=== PATIENT | female | born 1965 | race Caucasian/White ===

== ENCOUNTER 2018-02-05 15:00 | Inpatient (IN) | payer OTHER ==
[2018-02-05 15:42] VITALS: BMI 20.2
[2018-02-05 16:26] LABS: Hemoglobin 12.5 g/dL (12.0-16.0); Mean Corpuscular Hemoglobin 30.5 pg (27.0-31.0); Mean Corpuscular Volume 92.4 fL (78.0-98.0); Mean Platelet Volume 6.8 fL (7.4-10.4); Platelet Count 505 thou/uL (130-400); RBC Distribution Width 11.7 % (11.5-14.5); White Blood Cell (WBC) Count 15.1 thou/uL (4.8-10.8)
[2018-02-05 16:43] LABS: Anion Gap 13 mmol/L (10-20); BUN (Urea Nitrogen) 8 mg/dL (9.8-20.1); Calc. Creatinine Clearance 0 mL/min (70-130); Calcium 8.4 mg/dL (7.8-10.44); Carbon Dioxide 28 mmol/L (22-29); Chloride 94 mmol/L (98-107); Estimated GFR-MDRD Greater than 90; Glucose 97 mg/dL (70-105); Sodium 132 mmol/L (136-145)
[2018-02-05 16:45] LABS: Potassium 2.6 mmol/L (3.5-5.1)
--- NOTE | 2018-02-06 02:11 | HP ---
She is scheduled for surgery on 02/09/2018. HISTORY OF PRESENT ILLNESS: Ms. Hubbard is a 52-year-old white female, menopausal since age 40, present ed to the emergency room on 01/25/2018, complaining of pelvic pain and nausea for few days. Workup e nsued at that visit including a CT of the abdomen and pelvis along with pelvic ultrasound. A left ov oscar 8 cm cyst with few septations were seen with Doppler flow present. There was no ascites or ome ntal caking or adenopathy, the pelvic or paraaortic chains. 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 No family history of breast or ovarian cancer. A lso, denies uterine or colon cancer. She has been using nonsteroidals and occasional Tylenol No. 3 f or pain. PAST MEDICAL HISTORY: Negative. PAST SURGICAL HISTORY: Appendectomy. She has never been . SOCIAL HISTORY: Nonsmoker. ALLERGIES: She has no known drug allergies. CURRENT MEDICATIONS: Zofran 4 mg q. 4-6 hours p.r.n. nausea, ibuprofen over the counter and Tylenol No. 3 one every 6 hours as needed for pain. PHYSICAL EXAMINATION: GENERAL: Well-developed, well-nourished white female in no acute distress. HEENT: Within normal limits. NECK: Showed no adenopathy, no masses and no thyromegaly. LUNGS: Chest is clear to auscultation. HEART: Regular rate and rhythm. S1, S2 heart sounds with no murmurs, rubs, or gallops. ABDOMEN: Soft. There is no rebound tenderness. No masses were palpable. PELVIC: External female genitalia had no lesions or masses. Vagina showed to be an atrophic mucosa consistent with menopausal state. Cervix had no discharge or lesions seen. The patient reports a no rmal Pap smear 2 years ago. Uterus was midline, smooth, nontender, nonenlarged. Adnexa showed a pal pable 8 cm mass on the left side, mildly tender with no rebound. Bladder and urethra had no lesions or masses seen. A CA-125 was obtained preoperatively showed it to be normal at 16.6 range. ASSESSMENT: This is a 52-year-old postmenopausal woman G0 with an 8 cm mainly cystic adnexal mass, m ost likely a serous cystadenoma. The patient with normal CA-125 levels and no other concerning findi ngs noted on CAT scan of abdomen and pelvis. The patient desired definitive surgical therapy and we will proceed with total abdominal hysterectomy along with bilateral salpingo-oophorectomy. Risks and benefits of the procedure are discussed in detail. Also discussed with her postoperative pain manag ement with the ON-Q pump for incisional pain control. She is set for surgery on 02/09/2018.
[2018-02-09] MEDS ORDERED: Gabapentin 300 MG CAP ONE (10:37)
[2018-02-09] MEDS ORDERED: Famotidine/PF 20 mg/2ml Vial ONE (10:38)
[2018-02-09] MEDS ORDERED: CeleCOXIB 100 MG CAP ONE (10:38)
[2018-02-09] MEDS ORDERED: CEFAZOLIN/Water 2 GM/20 ML SYRINGE ONE (10:38)
[2018-02-09] MEDS ORDERED: Ropivacaine HCl/PF 750 ML in Premix Bag 1 BAG NERVE BLCK SCH (10:45)
[2018-02-09] MEDS ORDERED: Potassium Chloride 20 MEQ TAB PO SCH ×2 (11:00→16:00)
[2018-02-09] MEDS ORDERED: Potassium Chloride 20 MEQ in Premix Bag 1 BAG IVPB SCH (11:00)
[2018-02-09 11:41] LABS: Potassium 2.6 mmol/L (3.5-5.1)
[2018-02-09] MEDS ORDERED: Potassium Chloride 40 MEQ in Sodium Chloride 0.9% 500 ML IVPB SCH (12:15)
[2018-02-09] MEDS ORDERED: Zolpidem Tartrate 5 MG TAB PO PRN (12:35)
[2018-02-09] MEDS ORDERED: Sodium Chloride 0.65% Nasal 44 ML BOT EA NARE PRN (14:44)
[2018-02-09] MEDS ORDERED: Artificial Tears 18 DROP/0.9 ML EA EYE PRN (14:44)
[2018-02-09] MEDS ORDERED: Diabetic Tussin 200 MG/10 ML UDCUP PO PRN (14:44)
[2018-02-09] MEDS ORDERED: Mag-Al 1200 mg/1200 mg/30 ML UDCUP PO PRN (14:44)
[2018-02-09] MEDS ORDERED: Milk Of Magnesia 30 ML UDCUP PO PRN (14:44)
[2018-02-09] MEDS ORDERED: Ondansetron ODT 4 MG TAB PO PRN (14:44)
[2018-02-09] MEDS ORDERED: Loratadine 10 MG TAB PO PRN (14:44)
[2018-02-09] MEDS ORDERED: Eucerin (Mineral Oil/Petrolatum,White) 30 gm Jar TOP PRN (14:44)
[2018-02-09] MEDS ORDERED: hydrALAZINE 20 MG/ML VIAL SLOW IVP PRN (14:44)
[2018-02-09] MEDS: Ondansetron HCl/PF 4 MG/2 ML Vial IVP PRN ×2 (15:04→20:39)
--- NOTE | 2018-02-09 15:19 | CON ---
DATE OF CONSULTATION: 02/09/2018 PRIMARY CARE PHYSICIAN: Dr. Sebastien Joyce. REASON FOR CONSULTATION: Medical management. HISTORY OF PRESENT ILLNESS: A 52-year-old female who was electively brought to the hospital for surg kierra for hysterectomy. The patient was planned for surgery today, but surgery was postponed because o f low potassium. We are consulted for medical comanagement. This patient has 2-3 weeks history of lower abdominal pain. The patient has nausea, vomiting, and in termittent diarrhea. The patient reports that she has 2-3 vomiting daily basis and nausea almost per sistent. She has very poor appetite and she lost several pounds over last 2-3 weeks. She also has i ntermittently diarrhea. After eating, she has to go for bowel movement. She denies any blood, pus. She denies any sick exposures. She denies any unusual food ingestion. The patient is feeling very fatigued and tired and dehydrated. Patient was keep drinking Gatorade and electrolyte solution, but patient was not eating solid food significantly. Because after eating solid food, she was feeling fu ll in stomach. She denies any UTI symptoms. She denies any chest pain, palpitation. She denies any syncope, dizziness. She is feeling weakness. Patient reports that she came to emergency room on 01/25/2018 for these symptoms and at that time, sh e had CT of the abdomen and pelvis along with a pelvic ultrasound and the patient was found with a le ft ovarian cyst 8 cm as well as few septation where seen with the Doppler study. As per my discussio n with Dr. Shields, there was no ascites or lymphadenopathy. The patient was electively admitted for surgery today. PAST MEDICAL HISTORY: Reviewed and negative. PAST SURGICAL HISTORY: Appendicectomy. SOCIAL HISTORY: The patient denies any smoking. No alcohol or other illicit drug abuse. FAMILY HISTORY: No strong family history of premature coronary artery disease, stroke or cancer. ALLERGIES: No known drug allergy. CURRENT HOME MEDICATIONS: Tylenol No. 3 one tablet q.6 hourly p.r.n., ibuprofen 600 mg p.o. p.r.n., Zofran 4 mg p.o. p.r.n. PAST PSYCHIATRIC HISTORY: Reviewed and negative. REVIEW OF SYSTEMS: The following complete review of systems was negative, unless otherwise mentioned in the HPI or below: Constitutional: Weight loss or gain, ability to conduct usual activities. Sk in: Rash, itching. Eyes: Double vision, pain. ENT/Mouth: Nose bleeding, neck stiffness, pain, te nderness. Cardiovascular: Palpitations, dyspnea on exertion, orthopnea. Respiratory: Shortness of breath, wheezing, cough, hemoptysis, fever or night sweats. Gastrointestinal: Poor appetite, abdomi nal pain, heartburn, nausea, vomiting, constipation, or diarrhea. Genitourinary: Urgency, frequency , dysuria, nocturia. Musculoskeletal: Pain, swelling. Neurologic/Psychiatric: Anxiety, depression . Allergy/Immunologic: Skin rash, bleeding tendency. Please see my HPI for pertinent positive and negative. All other review of systems reviewed and nega tive except as mentioned in the HPI. ADDITIONAL INFORMATION: At day stay patient was given potassium chloride 20 mEq IV, but the patient' s IV site was hurting and that is why that drip was discontinued and patient was started on NS with K Cl. PHYSICAL EXAMINATION: VITAL SIGNS: at day stay, blood pressure 130/70, pulse 88, respiratory rate 18, temperature 97.6, sa turation 95% on room air. GENERAL: Patient is currently alert, awake, no obvious acute distress. HEAD: Normocephalic, atraumatic. EYES: Pupils round, reactive to light. Extraocular muscle intact. ENT: Oropharynx within normal limits. Moist mucous membranes. No oral lesion, no pharyngeal erythe ma, no exudate. NECK: Supple, no JVD, no thyromegaly, no carotid bruit, no jugular venous distention. LUNGS: Clear to auscultation without any rhonchi or rales. CARDIAC: S1, S2 regular without any murmur, no gallop, no rub. ABDOMEN: Soft, bowel sounds present, nontender, nondistended. No organomegaly, no mass, no suprapub ic tenderness. BACK: Unremarkable, no CVA tenderness. EXTREMITIES: Upper extremity: Passive movements of all joints are normal. Lower extremities: No e jessica. Good distal pulsation. SKIN: No skin rash. HEMATOLOGICAL: No lymphadenopathy. PSYCHIATRIC: Normal affect. NEUROLOGIC: Nonfocal examination. SIGNIFICANT LABORATORY DATA: Currently, patient has potassium 2.6. Recent CBC showed WBC 15.1, hemo globin 12.5, platelet 505. Sodium 132, potassium 2.6, chloride 94, carbon dioxide 28, anion gap 13, BUN 8, creatinine 0.55, glucose 97, calcium 8.4. ASSESSMENT AND PLAN/IMPRESSION: 1. Hypokalemia. We will replace potassium chloride with IV fluid with 40 mEq in a 500 mL NS at a sl ow rate. We will recheck potassium again later on today at 5:00 p.m. We will check phosphorus and m agnesium, and replace accordingly. 2. Diarrhea. The patient has diarrhea for almost 2-3 weeks. At this point, we will send stool for infectious etiology and we will treat symptomatically with Imodium p.r.n. basis. 3. Ovarian cyst. We will defer management to primary team. 4. Deep venous thrombosis prophylaxis. Sequential compression device boots. Patient is planned for surgery tomorrow and that is why we will hold on Lovenox therapy. 5. Gastrointestinal prophylaxis. Pepcid 20 mg p.o. b.i.d. 6. Nausea and vomiting. We will treat symptomatically with Zofran on p.r.n. basis. 7. Code status: The patient is FULL CODE. Disposition plan based on clinical course. In short, we will repeat labs later on today and we will try to replace all electrolytes within normal limit. Eventually after surgery, this patient may need a colonoscopic evaluation to rule out any other etiology for her diarrhea.
[2018-02-09] MEDS: Sodium Chloride 0.9% 1,000 ML IV SCH (15:25)
[2018-02-09 16:14] LABS: Anion Gap 13 mmol/L (10-20); BUN (Urea Nitrogen) 7 mg/dL (9.8-20.1); Calc. Creatinine Clearance 95 mL/min (70-130); Calcium 8.5 mg/dL (7.8-10.44); Carbon Dioxide 24 mmol/L (22-29); Chloride 99 mmol/L (98-107); Estimated GFR-MDRD Greater than 90; Glucose 106 mg/dL (70-105); Magnesium 1.7 mg/dL (1.6-2.6); Phosphorus 3.1 mg/dL (2.3-4.7); Potassium 3.2 mmol/L (3.5-5.1); Sodium 133 mmol/L (136-145)
[2018-02-09] MEDS ORDERED: Sodium Chloride 0.9% 0 ML ONE (16:56)
[2018-02-09] MEDS: HYDROcodone/Acetaminophen 5/325 mg Tablet PO PRN (20:47)
[2018-02-09] MEDS: Famotidine 20 MG TAB PO SCH (20:47)
[2018-02-09 21:04] LABS: Band 49 % (5-11); Hemoglobin 12.6 g/dL (12.0-16.0); Lymphocytes 6 % (21-51); MDiff Complete? YES; Mean Corpuscular HGB CONC 33.8 g/dL (32.0-36.0); Mean Corpuscular Hemoglobin 31.1 pg (27.0-31.0); Mean Corpuscular Volume 91.9 fL (78.0-98.0); Mean Platelet Volume 6.3 fL (7.4-10.4); Metamyelocyte 1 % (0-0); Monocytes 5 % (0-10); Myelocyte 1 % (0-0); Neutrophil 38 % (42-75); PLT Morphology Comment Appears Increased; Platelet Count 582 thou/uL (130-400); RBC Distribution Width 11.6 % (11.5-14.5); RBC Morphology Normal; Red Blood Cell (RBC) Count 4.07 mill/uL (4.20-5.40); Reflex for Review?? YES; White Blood Cell (WBC) Count 13.5 thou/uL (4.8-10.8)
[2018-02-09 21:12] LABS: ALT (SGPT) 12 U/L (8-55); AST (SGOT) 16 U/L (5-34); Albumin 3.2 g/dL (3.5-5.0); Alkaline Phosphatase 102 U/L (40-150); Anion Gap 13 mmol/L (10-20); BUN (Urea Nitrogen) 8 mg/dL (9.8-20.1); Bilirubin, Total 0.3 mg/dL (0.2-1.2); Calc. Creatinine Clearance 100 mL/min (70-130); Calcium 8.7 mg/dL (7.8-10.44); Carbon Dioxide 25 mmol/L (22-29); Chloride 100 mmol/L (98-107); Estimated GFR-MDRD Greater than 90; Globulin 2.9 g/dL (2.4-3.5); Glucose 106 mg/dL (70-105); Potassium 3.2 mmol/L (3.5-5.1); Protein, Total 6.1 g/dL (6.0-8.3); Sodium 135 mmol/L (136-145)
[2018-02-10] MEDS: Sodium Chloride 0.9% 1,000 ML IV SCH ×3 (00:43→22:56)
[2018-02-10] MEDS: Loperamide HCl 2 MG CAP PO PRN (04:45)
[2018-02-10] MEDS: Famotidine 20 MG TAB PO SCH ×2 (07:43→20:43)
[2018-02-10 07:54] LABS: Anion Gap 9 mmol/L (10-20); BUN (Urea Nitrogen) 5 mg/dL (9.8-20.1); Calc. Creatinine Clearance 120 mL/min (70-130); Calcium 8.2 mg/dL (7.8-10.44); Carbon Dioxide 24 mmol/L (22-29); Chloride 105 mmol/L (98-107); Estimated GFR-MDRD Greater than 90; Glucose 99 mg/dL (70-105); Sodium 134 mmol/L (136-145)
--- NOTE | 2018-02-10 08:22 | PDOC.EVN ---
Event Note - Event Note Event Note: Ready for surgery this morning. Having some crampy abdominal pain O:AFVSS..K+ is 4.0... abdomen no rebound. soft. A/P: hypokalemia corrected. For ANA CRISTINA/BSO today..
[2018-02-10] MEDS ORDERED: Ondansetron HCl/PF 4 MG/2 ML Vial ONE ×2 (09:26→13:45)
[2018-02-10] MEDS ORDERED: Morphine 4 MG/ML VIAL ONE (09:26)
--- NOTE | 2018-02-10 09:39 | PDOC.PN ---
- Subjective Encounter Start Date: 02/10/18 Encounter Start Time: 08:40 Patient seen and examined. No new complaints. No overnight events - Objective Resuscitation Status: Resuscitation Status FULL:Full Resuscitation MAR Reviewed: Yes Vital Signs & Weight: Vital Signs (12 hours) Temp Pulse Resp BP Pulse Ox 02/10/18 08:30 98.3 F 72 18 117/69 92 L 02/10/18 04:45 98.9 F 73 18 110/54 L 02/10/18 00:45 98.7 F 69 16 108/53 L 96 Weight Weight 120 lb I&O: 02/09/18 02/10/18 02/11/18 06:59 06:59 06:59 Intake Total 2590 0 Balance 2590 0 Result Diagrams: 02/09/18 20:47 02/10/18 07:24 Phys Exam - Physical Examination Constitutional: NAD HEENT: PERRLA, moist MMs, sclera anicteric Neck: no JVD, supple Respiratory: no wheezing, no rales, no rhonchi Cardiovascular: RRR, no significant murmur, no rub Gastrointestinal: soft, non-tender, no distention, positive bowel sounds Musculoskeletal: no edema, pulses present Neurological: non-focal, normal sensation, moves all 4 limbs Psychiatric: normal affect, A&O x 3 Skin: no rash, normal turgor Dx/Plan (1) Bandemia Code(s): D72.825 - BANDEMIA Status: Acute (2) Diarrhea Code(s): R19.7 - DIARRHEA, UNSPECIFIED Status: Acute (3) Hypokalemia Code(s): E87.6 - HYPOKALEMIA Status: Acute (4) Hyponatremia Code(s): E87.1 - HYPO-OSMOLALITY AND HYPONATREMIA Status: Acute (5) Ovarian cyst Code(s): N83.209 - UNSPECIFIED OVARIAN CYST, UNSPECIFIED SIDE Status: Acute - Plan cont current plan of care, plan discussed w/ family * she is planned for ANA CRISTINA/BSO * electrolytes replaced * for her diarrhoea, she will need colonoscopy * I am not able to see her recent CT abdomen in system * medication reviewed as below * symptomatic treatment * discussed with family. Review of Systems - Review of Systems Constitutional: negative: fever, chills, sweats, weakness, malaise, other Eyes: negative: Pain, Vision Change, Conjunctivae Inflammation, Eyelid Inflammation, Redness, Other ENT: negative: Ear Pain, Ear Discharge, Nose Pain, Nose Discharge, Nose Congestion, Mouth Pain, Mouth Swelling, Throat Pain, Throat Swelling, Other Respiratory: negative: Cough, Dry, Shortness of Breath, Hemoptysis, SOB with Excertion, Pleuritic Pain, Sputum, Wheezing Cardiovascular: negative: chest pain, palpitations, orthopnea, paroxysmal nocturnal dyspnea, edema, light headedness, other Gastrointestinal: Abdominal Pain, Diarrhea. negative: Nausea, Vomiting, Constipation, Melena, Hematochezia, Other Genitourinary: negative: Dysuria, Frequency, Incontinence, Hematuria, Retention , Other Musculoskeletal: negative: Neck Pain, Shoulder Pain, Arm Pain, Back Pain, Hand Pain, Leg Pain, Foot Pain, Other Skin: negative: Rash, Lesions, Taye, Bruising, Other - Medications/Allergies Allergies/Adverse Reactions: Allergies Allergy/AdvReac Type Severity Reaction Status Date / Time No Known Allergies Allergy Unverified 02/05/18 15:42 Medications: Current Medications Acetaminophen (Tylenol) 650 mg PO Q4H PRN PRN Reason: Headache/Fever or Mild Pain Hydrocodone Bitart/Acetaminophen ([place] 5/325) 1 tab PO Q4H PRN PRN Reason: Moderate Pain (4-6) Last Admin: 02/09/18 20:47 Dose: 1 tab Al Hydroxide/Mg Hydroxide (Maalox) 15 ml PO Q4H PRN PRN Reason: Heartburn or Indigestion Artificial Tears (Tears Naturale) 0 drop EA EYE PRN PRN PRN Reason: Dry Eyes Famotidine (Pepcid) 20 mg PO BID [facility] Last Admin: 02/10/18 07:43 Dose: Not Given Guaifenesin (Robitussin Sf) 200 mg PO Q4H PRN PRN Reason: Cough Hydralazine HCl (Apresoline) 10 mg SLOW IVP Q4H PRN PRN Reason: Systolic BP > 180 Ropivacaine 750 ml/ Device 750 mls @ 0 mls/hr NERVE BLCK INF JORGE L Sodium Chloride (Normal Saline 0.9%) 1,000 mls @ 125 mls/hr IV .Q8H [facility] Last Admin: 02/10/18 00:43 Dose: 1,000 mls Loperamide HCl (Imodium) 2 mg PO PRN PRN PRN Reason: Diarrhea/Loose Stools Last Admin: 02/10/18 04:45 Dose: 2 mg Loratadine (Claritin) 10 mg PO DAILYPRN PRN PRN Reason: Sinus Symptoms Magnesium Hydroxide (Milk Of Magnesium) 30 ml PO DAILYPRN PRN PRN Reason: Constipation Mineral Oil/White Petrolatum (Eucerin Cream) 0 gm TOP BIDPRN PRN PRN Reason: Dry Skin Morphine Sulfate (Morphine) 2 mg SLOW IVP NOW JORGE L Stop: 02/10/18 10:00 Ondansetron HCl (Zofran) 4 mg IVP Q6H PRN PRN Reason: Nausea/Vomiting Last Admin: 02/09/18 20:39 Dose: 4 mg Ondansetron HCl (Zofran Odt) 4 mg PO Q6H PRN PRN Reason: Nausea/Vomiting Sodium Chloride ([place] Nasal [place] 0.65%) 0 ml EA NARE QIDPRN PRN PRN Reason: Nasal Congestion Sodium Chloride (Flush - Normal Saline) 10 ml IVF Q12HR JORGE L Sodium Chloride (Flush - Normal Saline) 10 ml IVF PRN PRN PRN Reason: Saline Flush Zolpidem Tartrate (Ambien) 5 mg PO HSPRN PRN PRN Reason: Insomnia
[2018-02-10] MEDS ORDERED: CEFAZOLIN/Water 2 GM/20 ML SYRINGE ONE (09:51)
[2018-02-10] MEDS ORDERED: Gabapentin 300 MG CAP ONE (10:04)
[2018-02-10] MEDS ORDERED: Famotidine/PF 20 mg/2ml Vial ONE (10:04)
[2018-02-10] MEDS ORDERED: CeleCOXIB 100 MG CAP ONE (10:05)
[2018-02-10] MEDS ORDERED: Bupivacaine 0.25% HCL 30 ML VIAL ONE (10:24)
[2018-02-10] MEDS ORDERED: Fentanyl 100 MCG/2 ML VIAL ONE ×3 (10:38→13:06)
[2018-02-10] MEDS ORDERED: HYDROmorphone 2 MG/ML VIAL ONE (13:07)
[2018-02-10] MEDS ORDERED: Promethazine HCl 25 MG/ML VIAL ONE (13:09)
[2018-02-10] MEDS ORDERED: traMADol HCl 50 MG TAB PO PRN ×2 (13:11)
[2018-02-10] MEDS ORDERED: Bisacodyl 10 MG SUPP PR PRN (13:11)
[2018-02-10] MEDS ORDERED: Morphine 4 MG/ML Carpuject SLOW IVP PRN (13:11)
[2018-02-10] MEDS ORDERED: Promethazine HCl 25 MG/ML VIAL IM PRN (13:11)
[2018-02-10] MEDS ORDERED: diphenhydrAMINE 25 MG CAP PO PRN (13:11)
[2018-02-10] MEDS ORDERED: Glycopyrrolate 0.2 MG/ML 5 ML SYRINGE ONE (13:45)
[2018-02-10] MEDS ORDERED: PROPOFOL 200 MG/20 ML VIAL ONE (13:45)
[2018-02-10] MEDS: Ketorolac Tromethamine 30 MG/ML VIAL IVP SCH (14:18)
[2018-02-10] MEDS: Ondansetron HCl/PF 4 MG/2 ML Vial IVP PRN (14:18)
--- NOTE | 2018-02-10 15:10 | OP ---
DATE OF PROCEDURE: 02/10/2018 PREOPERATIVE DIAGNOSES: 1. A 52-year-old white female G0 with 8 cm left adnexal mass with pelvic pain. 2. Recent nausea, vomiting, diarrhea, most likely secondary to mass and pelvic pain. POSTOPERATIVE DIAGNOSES: 1. A 52-year-old white female G0 with 8 cm left adnexal mass with pelvic pain. 2. Recent nausea, vomiting, diarrhea, most likely secondary to mass and pelvic pain. 3. 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 SURGEON: Leann Shields M.D. SPINDLE SETTER: Annette Collins M.D. ANESTHESIA: General endotracheal. ESTIMATED BLOOD LOSS: 50 mL. COMPLICATIONS: None. COUNTS: Correct x2. ANTIBIOTICS: Two grams Ancef marketing operations manager to OR. FINDINGS: 1. Approximately 8 cm simple cystic left adnexal mass with adherence to the peritoneal sidewall and some of the colon, status post adhesiolysis in her movement and removal intact. 2. Normal appearing postmenopausal right fallopian tube and ovary. 3. Uterine didelphys bicollis identified, appears to also have a vaginal septum identified. 4. Clear urine present in Castaneda catheter post-procedure. 5. There was normal omentum. No evidence of any ascites, no evidence of any tumor studding througho ut the peritoneal cavity. Normal appearing small bowel omentum. Patient was status post appendectom y. No inflammation of the surface of the colon noted. DISPOSITION: To the recovery room stable. PATHOLOGY: 2 uteruses, 2 cervixes, bilateral tubes, right ovary enlarged cystic and left cystic adne xal mass with cytology washings. DESCRIPTION OF OPERATIVE PROCEDURE: The patient previously received informed consent in regards to abdias hanson. She was taken back to the operating room where she received a general endotracheal anestheti c agent without complications. She underwent a midline. She was then prepped and draped in usual st erile fashion. A midline incision was made just below the umbilicus was carried down the fascia. Fa scia was nicked in midline. Fascial incision extended bilaterally with use of the Bovie cautery. Th e rectus muscle was divided in the midline. The peritoneal cavity was entered cytology washings were then obtained in the cul-de-sac, posterior and anteriorly. The O'Mak-O'Griggs retractor was th en placed. The bowel was packed away with moistened laparotomy sponges. The left adnexal mass was i solated. The left IP ligament was then isolated and dissected free from the sigmoid colon, skeletoni zed in this. This allowed for clamping of it with a Vee clamp and transection. The ureter was no ananya to be well below the pedicle site. Serial area and the peritoneal adhesions over the cyst keepin g this is intact, was carried out with Metzenbaum scissors. The left round ligament was reached. It was coagulated and transected and suture ligated along with further isolation of the uterine ovarian ligament on the left side. This was clamped and then transected and the specimen was then removed a fter the peritoneal adhesions from the rectum were taken down sharply. It was noted that the patient clearly had 2 uteruses consistent with uterine didelphys. The anterior leaf of the broad ligament h ad been entered. Vesicouterine peritoneum was dissected sharply dissecting past the cervical vaginal angle. The uterine vessels were skeletonized after the right infundibulopelvic ligament had been sk eletonized, doubly clamped and suture ligated. Serial clamping hugging close to the small postmenopa usal uterus carried out until the right round ligament was reached. It had been suture ligated and t ransected. Anterior lip of the broad ligament was entered and vesicouterine peritoneum was taken serenity n layering technique past the cervical vaginal margin. Uterine vessels again were skeletonized. The y were clamped at the uterine internal cervical os region. These were transected. Once the bladder had been safely dissected past the cervical vaginal angle, 2 straight [place] clamps had been plac ed on the remainder of the cardinal uterosacral ligament complex. The vaginal angles were then clamp ed with Eve clamps. The specimen was then excised with Bonds scissors. During this process, we no ananya there would be a demarcation in the vaginal cuff consistent with a vaginal septum. After removal of the uterine specimen, we did confirm bicollis with 2 cervices being visualized. The angles of th e vaginal cuff were then suture ligated with a [id number] suture of 0 Vicryl and interrupted figure -of-eight stitches were placed in the remainder of the vaginal cuff sites securing hemostasis. The p austyn was then irrigated and suctioned and pedicle sites again were confirmed to be hemostatic. Agai n Castaneda catheter was draining clear urine. Once the pelvis had been irrigated and suctioned, hemosta sis was confirmed. The peritoneum was closed with running 2-0 Vicryl suture. The upper edge of the abdominal fascia was grasped with a Hosea clamp in a double looped #1 PDS suture was then placed at the top angle with additional throw and then the ON-Q pump double lumen was placed with the trocar ne edle just under the fascia and the muscle and catheters were left in situ. The remainder of the fasc ia was then closed in running continuous fashion and then the subcutaneous tissue was irrigated and n oted be hemostatic prior to skin approximation with mauricio. On-Q catheters were then threaded to th at the catheter guide which were then removed intact and the On-Q catheters were taken down with Ster i-Strips and they were primed with Marcaine 0.25%. The bandage was then placed. The patient was enrique kened from anesthesia, transferred to the recovery room in stable condition.
[2018-02-10] MEDS: Lactated Ringer's 1,000 ML IV SCH ×2 (16:51→22:56)
[2018-02-10] MEDS: HYDROcodone/Acetaminophen 5/325 mg Tablet PO PRN (20:43)
[2018-02-11] MEDS: Ketorolac Tromethamine 30 MG/ML VIAL IVP SCH ×4 (00:20→18:30)
[2018-02-11] MEDS: Sodium Chloride 0.9% 1,000 ML IV SCH ×3 (00:24→14:10)
[2018-02-11 06:08] LABS: Hemoglobin 10.8 g/dL (12.0-16.0); Mean Corpuscular Hemoglobin 30.5 pg (27.0-31.0); Mean Corpuscular Volume 92.2 fL (78.0-98.0); Mean Platelet Volume 6.1 fL (7.4-10.4); Platelet Count 485 thou/uL (130-400); RBC Distribution Width 11.5 % (11.5-14.5); Red Blood Cell (RBC) Count 3.53 mill/uL (4.20-5.40); White Blood Cell (WBC) Count 11.6 thou/uL (4.8-10.8)
[2018-02-11 06:36] LABS: Anion Gap 11 mmol/L (10-20); BUN (Urea Nitrogen) 4 mg/dL (9.8-20.1); Calc. Creatinine Clearance 126 mL/min (70-130); Calcium 7.9 mg/dL (7.8-10.44); Carbon Dioxide 24 mmol/L (22-29); Chloride 101 mmol/L (98-107); Estimated GFR-MDRD Greater than 90; Glucose 84 mg/dL (70-105); Sodium 133 mmol/L (136-145)
[2018-02-11] MEDS: Lactated Ringer's 1,000 ML IV SCH ×2 (07:22→14:10)
--- NOTE | 2018-02-11 07:48 | PDOC.EVN ---
Event Note - Event Note Event Note: Tolerating full liquids. Some diarrhea. No nausea. Pain control . O:AFVSS Abdomen soft/non distended. Pain pump in place. A/P Post op day 1 from ANA CRISTINA/BSO Hypokalemia--replete. If diarrhea continues today, GI consult.
[2018-02-11] MEDS: Famotidine 20 MG TAB PO SCH ×2 (09:27→21:07)
[2018-02-11] MEDS: Potassium Chloride 20 MEQ in Premix Bag 1 BAG IVPB SCH ×2 (09:28→11:09)
[2018-02-11] MEDS ORDERED: ADMIXTURE FEE IVPB SCH (10:15)
[2018-02-11] MEDS ORDERED: POTASSIUM CHLORIDE IVPB SCH (10:15)
[2018-02-11] MEDS ORDERED: SODIUM CHLORIDE IVPB SCH (10:15)
[2018-02-11] MEDS: HYDROcodone/Acetaminophen 5/325 mg Tablet PO PRN ×2 (10:44→16:33)
--- NOTE | 2018-02-11 11:41 | PDOC.PN ---
- Subjective Encounter Start Date: 02/11/18 Encounter Start Time: 08:30 pt has diarrhoea and early satity, no abdominal pain - Objective Resuscitation Status: Resuscitation Status FULL:Full Resuscitation MAR Reviewed: Yes Vital Signs & Weight: Vital Signs (12 hours) Temp Pulse Resp BP Pulse Ox 02/11/18 07:48 98.5 F 80 22 H 139/64 96 02/11/18 05:50 98.3 F 85 18 148/67 H 02/11/18 00:15 99.4 F 85 18 132/63 94 L Weight Weight 120 lb I&O: 02/10/18 02/11/18 02/12/18 06:59 06:59 06:59 Intake Total 2590 1870 Output Total 1850 Balance 2590 20 Result Diagrams: 02/11/18 05:55 02/11/18 05:55 Phys Exam - Physical Examination Constitutional: NAD HEENT: PERRLA, moist MMs, sclera anicteric Neck: no JVD, supple Respiratory: no wheezing, no rales, no rhonchi Cardiovascular: RRR, no significant murmur, no rub Gastrointestinal: soft, non-tender, no distention, positive bowel sounds surgical site with dressing Musculoskeletal: no edema, pulses present Neurological: non-focal, normal sensation, moves all 4 limbs Lymphatic: no nodes Psychiatric: normal affect, A&O x 3 Skin: no rash, normal turgor Dx/Plan (1) Bandemia Code(s): D72.825 - BANDEMIA Status: Acute (2) Diarrhea Code(s): R19.7 - DIARRHEA, UNSPECIFIED Status: Acute (3) Hypokalemia Code(s): E87.6 - HYPOKALEMIA Status: Acute (4) Hyponatremia Code(s): E87.1 - HYPO-OSMOLALITY AND HYPONATREMIA Status: Acute (5) Ovarian cyst Code(s): N83.209 - UNSPECIFIED OVARIAN CYST, UNSPECIFIED SIDE Status: Acute - Plan cont current plan of care, plan discussed w/ family * will consult GI for further evaluation * medication reviewed as below * symptomatic treatment * continue post operative care. * replace potassium Review of Systems - Review of Systems Constitutional: negative: fever, chills, sweats, weakness, malaise, other Eyes: negative: Pain, Vision Change, Conjunctivae Inflammation, Eyelid Inflammation, Redness, Other ENT: negative: Ear Pain, Ear Discharge, Nose Pain, Nose Discharge, Nose Congestion, Mouth Pain, Mouth Swelling, Throat Pain, Throat Swelling, Other Respiratory: negative: Cough, Dry, Shortness of Breath, Hemoptysis, SOB with Excertion, Pleuritic Pain, Sputum, Wheezing Cardiovascular: negative: chest pain, palpitations, orthopnea, paroxysmal nocturnal dyspnea, edema, light headedness, other Gastrointestinal: Diarrhea. negative: Nausea, Vomiting, Abdominal Pain, Constipation, Melena, Hematochezia, Other Genitourinary: negative: Dysuria, Frequency, Incontinence, Hematuria, Retention , Other Musculoskeletal: negative: Neck Pain, Shoulder Pain, Arm Pain, Back Pain, Hand Pain, Leg Pain, Foot Pain, Other Skin: negative: Rash, Lesions, Taye, Bruising, Other - Medications/Allergies Allergies/Adverse Reactions: Allergies Allergy/AdvReac Type Severity Reaction Status Date / Time No Known Allergies Allergy Unverified 02/05/18 15:42 Medications: Current Medications Acetaminophen (Tylenol) 650 mg PO Q4H PRN PRN Reason: Headache/Fever or Mild Pain Hydrocodone Bitart/Acetaminophen ([place] 5/325) 1 tab PO Q4H PRN PRN Reason: Moderate Pain (4-6) Last Admin: 02/11/18 10:44 Dose: 1 tab Al Hydroxide/Mg Hydroxide (Maalox) 15 ml PO Q4H PRN PRN Reason: Heartburn or Indigestion Artificial Tears (Tears Naturale) 0 drop EA EYE PRN PRN PRN Reason: Dry Eyes Bisacodyl (Dulcolax) 10 mg [place] Q8H PRN PRN Reason: Constipation Diphenhydramine HCl (Benadryl) 25 mg PO Q4H PRN PRN Reason: Itching Famotidine (Pepcid) 20 mg PO BID [facility] Last Admin: 02/11/18 09:27 Dose: 20 mg Guaifenesin (Robitussin Sf) 200 mg PO Q4H PRN PRN Reason: Cough Hydralazine HCl (Apresoline) 10 mg SLOW IVP Q4H PRN PRN Reason: Systolic BP > 180 Ropivacaine 750 ml/ Device 750 mls @ 0 mls/hr NERVE BLCK INF JORGE L Lactated Ringer's (Lactated Ringer's) 1,000 mls @ 125 mls/hr IV .Q8H [facility] Last Admin: 02/11/18 07:22 Dose: Not Given Sodium Chloride (Normal Saline 0.9%) 1,000 mls @ 125 mls/hr IV .Q8H [facility] Last Admin: 02/11/18 06:03 Dose: Not Given Potassium Chloride 40 meq/Miscellaneous Medication 1 each/ Sodium Chloride 520 mls @ 130 mls/hr IVPB NOW [facility] Stop: 02/11/18 15:00 Last Admin: 02/11/18 10:47 Dose: 520 mls Ibuprofen (Motrin) 800 mg PO BID [facility] Ketorolac Tromethamine (Toradol) 30 mg IVP Q6HR [facility] Stop: 02/15/18 18:01 Last Admin: 02/11/18 05:56 Dose: 30 mg Loperamide HCl (Imodium) 2 mg PO PRN PRN PRN Reason: Diarrhea/Loose Stools Last Admin: 02/10/18 04:45 Dose: 2 mg Loratadine (Claritin) 10 mg PO DAILYPRN PRN PRN Reason: Sinus Symptoms Magnesium Hydroxide (Milk Of Magnesium) 30 ml PO DAILYPRN PRN PRN Reason: Constipation Mineral Oil/White Petrolatum (Eucerin Cream) 0 gm TOP BIDPRN PRN PRN Reason: Dry Skin Morphine Sulfate (Morphine) 4 mg SLOW IVP Q4H PRN PRN Reason: Severe Pain (7-10) Last Admin: 02/10/18 16:45 Dose: 4 mg Ondansetron HCl (Zofran) 4 mg IVP Q6H PRN PRN Reason: Nausea/Vomiting Last Admin: 02/10/18 14:18 Dose: 4 mg Ondansetron HCl (Zofran Odt) 4 mg PO Q6H PRN PRN Reason: Nausea/Vomiting Promethazine HCl (Phenergan) 25 mg IM Q3H PRN PRN Reason: Nausea/Vomiting Sodium Chloride ([place] Nasal [place] 0.65%) 0 ml EA NARE QIDPRN PRN PRN Reason: Nasal Congestion Sodium Chloride (Flush - Normal Saline) 10 ml IVF Q12HR [facility] Last Admin: 02/11/18 09:29 Dose: Not Given Sodium Chloride (Flush - Normal Saline) 10 ml IVF PRN PRN PRN Reason: Saline Flush Sodium Chloride (Flush - Normal Saline) 10 ml IVF Q12HR JORGE L Last Admin: 02/11/18 09:29 Dose: Not Given Sodium Chloride (Flush - Normal Saline) 10 ml IVF PRN PRN PRN Reason: Saline Flush Tramadol HCl (Ultram) 100 mg PO Q6H PRN PRN Reason: Moderate Pain (4-6) Tramadol HCl (Ultram) 50 mg PO Q6H PRN PRN Reason: Mild Pain (1-3) Zolpidem Tartrate (Ambien) 5 mg PO HSPRN PRN PRN Reason: Insomnia
[2018-02-11] MEDS: Ondansetron HCl/PF 4 MG/2 ML Vial IVP PRN (11:44)
[2018-02-11] MEDS ORDERED: Potassium Chloride 20 MEQ TAB PO SCH (12:00)
[2018-02-11 16:18] LABS: Anion Gap 12 mmol/L (10-20); BUN (Urea Nitrogen) 4 mg/dL (9.8-20.1); Calc. Creatinine Clearance 123 mL/min (70-130); Calcium 8.4 mg/dL (7.8-10.44); Carbon Dioxide 27 mmol/L (22-29); Chloride 101 mmol/L (98-107); Estimated GFR-MDRD Greater than 90; Glucose 97 mg/dL (70-105); Potassium 3.9 mmol/L (3.5-5.1); Sodium 136 mmol/L (136-145)
[2018-02-11] MEDS: Loperamide HCl 2 MG CAP PO PRN (16:33)
--- NOTE | 2018-02-11 17:22 | CON ---
DATE OF CONSULTATION: 02/11/2018 HISTORY OF PRESENT ILLNESS: The patient is a 52-year-old female who reports a several-week history of nausea, vomiting and diarrhea. She initially presented to the emergency department under the name Shawna Hubbard and underwent an abdominal pelvic CT, which showed a large cystic lesion in the le ft hemipelvis measuring up to 8 cm in size and circumferential thickening of the urinary bladder. Pe lvic ultrasound done at the same time showed a large partially septated left ovarian cystic mass conc erning for cystadenoma or cystadenocarcinoma. The patient was seen by Dr. Shields in the outpatient s etting and underwent a hysterectomy yesterday. She has lost approximately 27 pounds. She has persis tent nausea or vomiting. She does have some lower abdominal pain and chronic diarrhea. She denies a [place] prior antibiotic use, any travel outside the country. PAST MEDICAL HISTORY: Negative. PAST SURGICAL HISTORY: Includes an appendectomy. SOCIAL HISTORY: She does smoke, does not drink. FAMILY HISTORY: Negative for GI or liver disease. ALLERGIES: No known allergies. MEDICATIONS: She does not take any prescription medications. REVIEW OF SYSTEMS: Ten systems were reviewed and were negative except for above. PHYSICAL EXAMINATION: GENERAL: Shows a thin white female, in no acute distress. HEENT: Unremarkable. NECK: Supple. CHEST: Clear. CARDIOVASCULAR: Regular rate and rhythm. ABDOMEN: Soft. Diffusely tender in the lower quadrants. She has bandaged surgical scar. RECTAL: Deferred. EXTREMITIES: Normal. NEUROLOGIC: Nonfocal. LABORATORY DATA: Shows a white blood cell count 11.6, hemoglobin 10.8, hematocrit 32.6. Chemistries significant for a sodium of 135, potassium 3.2, BUN 8, creatinine 0.55. ASSESSMENT: 1. Chronic diarrhea -- I suspect probably extrinsic compression from her pelvic mass. 2. Weight loss. 3. Persistent nausea and vomiting. 4. Pelvic mass. 5. Status post hysterectomy yesterday. RECOMMENDATIONS: 1. EGD tomorrow. 2. We will defer colonoscopy until the patient has had time to recover from her surgery. 3. P.r.n. Imodium.
[2018-02-11] MEDS: Loperamide HCl 2 MG CAP PO SCH (21:07)
[2018-02-12] MEDS: Ketorolac Tromethamine 30 MG/ML VIAL IVP SCH ×5 (00:16→23:59)
[2018-02-12] MEDS: Lactated Ringer's 1,000 ML IV SCH ×4 (04:57→23:27)
[2018-02-12] MEDS: Sodium Chloride 0.9% 1,000 ML IV SCH ×4 (04:58→23:27)
--- NOTE | 2018-02-12 07:47 | PDOC.EVN ---
Event Note - Event Note Event Note: Still having diarrhea. No vomiting but did not eat much yesterday. Pain control ok. O:afebrile.. VSS Abdomen is soft and non disteneded. Incision site is clean, dry , and intact. On Q Pump in place. A/P:post op day 2 from [facility]?BSO for large cystic mass. Pathology pending Nausea, vomiting, diarrhea-to undergo EGD today with GI service. 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
[2018-02-12] MEDS: Ondansetron HCl/PF 4 MG/2 ML Vial IVP PRN ×2 (08:01→17:09)
[2018-02-12] MEDS: Loperamide HCl 2 MG CAP PO SCH ×2 (08:06→21:12)
[2018-02-12] MEDS: Famotidine 20 MG TAB PO SCH ×2 (08:06→21:12)
--- NOTE | 2018-02-12 12:03 | OP ---
DATE OF PROCEDURE: 02/12/2018 SURGEON: Dr. Sanjiv Topete PREOPERATIVE DIAGNOSES: 1. Persistent nausea and vomiting. 2. Chronic diarrhea. PROCEDURE: After informed consent was obtained, the patient placed in left lateral decubitus positio n. Anesthesia administered per the Anesthesia Department. Forward-viewing endoscope was inserted in to the esophagus under direct visualization with ease and passed to the second portion of the duodenu m with ease. Second portion of the duodenum was normal. The duodenal bulb was normal. There was so me diffuse erythema throughout the small intestine. Biopsies were taken from the second portion of t he duodenum. The pylorus, antrum, body, fundus, and cardia were normal except for some erosive gastr itis of the antrum and body. Biopsies were taken from the gastric antrum and body. Retroflexion in the stomach was normal. The esophagus was normal throughout. ASSESSMENT: 1. Diffuse mild duodenitis - status post biopsy. 2. Mild erosive gastritis - status post biopsy. 3. Otherwise, normal esophagogastroduodenoscopy. RECOMMENDATIONS: 1. Await histopathology. 2. Begin a proton pump inhibitor. 3. Colonoscopy at a later date.
[2018-02-12] MEDS ORDERED: PROPOFOL 200 MG/20 ML VIAL ONE (12:49)
[2018-02-12] MEDS ORDERED: Lidocaine 1% PF 5 ML VIAL ONE (12:49)
[2018-02-12] MEDS: Loperamide HCl 2 MG CAP PO PRN (17:09)
[2018-02-12] MEDS: Acetaminophen 325 MG TAB PO PRN ×2 (18:02→23:58)
--- NOTE | 2018-02-12 18:09 | PDOC.PN ---
- Subjective Encounter Start Date: 02/12/18 Encounter Start Time: 17:00 Subjective: has mild abd pain -: no nausea, is tolerating liq diet -: had total of 2 episodes of watery diarrhea from am - Objective Resuscitation Status: Resuscitation Status FULL:Full Resuscitation MAR Reviewed: Yes Vital Signs & Weight: Vital Signs (12 hours) Temp Pulse Resp BP Pulse Ox 02/12/18 16:45 99.8 F H 89 22 H 129/65 98 02/12/18 15:45 100.4 F H 86 18 140/62 97 02/12/18 14:45 98.2 F 86 16 139/65 100 02/12/18 13:45 98.5 F 81 16 111/55 L 98 02/12/18 12:45 98.1 F 81 18 118/65 100 02/12/18 12:15 98.3 F 78 20 119/58 L 100 02/12/18 11:36 99.2 F 78 20 135/91 H 02/12/18 11:12 99.2 F 78 20 135/91 H 98 02/12/18 10:42 98.2 F 80 16 142/69 H 99 02/12/18 08:23 99.4 F 84 20 144/67 H Weight Weight 120 lb I&O: 02/11/18 02/12/18 02/13/18 06:59 06:59 06:59 Intake Total 1870 1310 Output Total 1850 2650 Balance 20 -1340 Result Diagrams: 02/11/18 05:55 02/11/18 15:53 Phys Exam - Physical Examination HEENT: PERRLA, moist MMs Neck: no JVD, supple Respiratory: no wheezing, no rales Cardiovascular: RRR, no significant murmur Gastrointestinal: soft, non-tender, positive bowel sounds has nerve block, surgical incision in dressing Musculoskeletal: no edema, pulses present Neurological: non-focal, moves all 4 limbs Psychiatric: normal affect, A&O x 3 Dx/Plan (1) Gastritis and duodenitis Code(s): K29.90 - GASTRODUODENITIS, UNSPECIFIED, WITHOUT BLEEDING Status: Acute (2) Diarrhea Code(s): R19.7 - DIARRHEA, UNSPECIFIED Status: Acute Comment: likely sec to bowel obstr from left ovarian cyst, resolving (3) Ovarian cyst Code(s): N83.209 - UNSPECIFIED OVARIAN CYST, UNSPECIFIED SIDE Status: Acute Qualifiers: Laterality: left Qualified Code(s): N83.202 - Unspecified ovarian cyst, left side Comment: s/p hysterectomy with b/l oophorectomy - Plan hemostable -: electrolytes are stabilizing -: is on ropivacaine nerve block -: ppi. Is amb in hallway -: advance diet per OBGyn adv * . Review of Systems - Medications/Allergies Allergies/Adverse Reactions: Allergies Allergy/AdvReac Type Severity Reaction Status Date / Time No Known Allergies Allergy Unverified 02/05/18 15:42 Medications: Current Medications Acetaminophen (Tylenol) 650 mg PO Q4H PRN PRN Reason: Headache/Fever or Mild Pain Last Admin: 02/12/18 18:02 Dose: 650 mg Hydrocodone Bitart/Acetaminophen ([place] 5/325) 1 tab PO Q4H PRN PRN Reason: Moderate Pain (4-6) Last Admin: 02/11/18 16:33 Dose: 1 tab Al Hydroxide/Mg Hydroxide (Maalox) 15 ml PO Q4H PRN PRN Reason: Heartburn or Indigestion Artificial Tears (Tears Naturale) 0 drop EA EYE PRN PRN PRN Reason: Dry Eyes Bisacodyl (Dulcolax) 10 mg [place] Q8H PRN PRN Reason: Constipation Diphenhydramine HCl (Benadryl) 25 mg PO Q4H PRN PRN Reason: Itching Famotidine (Pepcid) 20 mg PO BID [facility] Last Admin: 02/12/18 08:06 Dose: 20 mg Guaifenesin (Robitussin Sf) 200 mg PO Q4H PRN PRN Reason: Cough Hydralazine HCl (Apresoline) 10 mg SLOW IVP Q4H PRN PRN Reason: Systolic BP > 180 Ropivacaine 750 ml/ Device 750 mls @ 0 mls/hr NERVE BLCK INF JORGE L Lactated Ringer's (Lactated Ringer's) 1,000 mls @ 125 mls/hr IV .Q8H [facility] Last Admin: 02/12/18 14:00 Dose: Not Given Sodium Chloride (Normal Saline 0.9%) 1,000 mls @ 125 mls/hr IV .Q8H [facility] Last Admin: 02/12/18 14:01 Dose: Not Given Ibuprofen (Motrin) 800 mg PO BID [facility] Ketorolac Tromethamine (Toradol) 30 mg IVP Q6HR [facility] Stop: 02/15/18 18:01 Last Admin: 02/12/18 17:50 Dose: 30 mg Loperamide HCl (Imodium) 2 mg PO PRN PRN PRN Reason: Diarrhea/Loose Stools Last Admin: 02/12/18 17:09 Dose: 2 mg Loperamide HCl (Imodium) 2 mg PO BID [facility] Last Admin: 02/12/18 08:06 Dose: 2 mg Loratadine (Claritin) 10 mg PO DAILYPRN PRN PRN Reason: Sinus Symptoms Magnesium Hydroxide (Milk Of Magnesium) 30 ml PO DAILYPRN PRN PRN Reason: Constipation Mineral Oil/White Petrolatum (Eucerin Cream) 0 gm TOP BIDPRN PRN PRN Reason: Dry Skin Morphine Sulfate (Morphine) 4 mg SLOW IVP Q4H PRN PRN Reason: Severe Pain (7-10) Last Admin: 02/10/18 16:45 Dose: 4 mg Ondansetron HCl (Zofran) 4 mg IVP Q6H PRN PRN Reason: Nausea/Vomiting Last Admin: 02/12/18 17:09 Dose: 4 mg Ondansetron HCl (Zofran Odt) 4 mg PO Q6H PRN PRN Reason: Nausea/Vomiting Pantoprazole Sodium (Protonix) 40 mg IVP Q12HR [facility] Promethazine HCl (Phenergan) 25 mg IM Q3H PRN PRN Reason: Nausea/Vomiting Sodium Chloride ([place] Nasal [place] 0.65%) 0 ml EA NARE QIDPRN PRN PRN Reason: Nasal Congestion Sodium Chloride (Flush - Normal Saline) 10 ml IVF Q12HR [facility] Last Admin: 02/12/18 08:01 Dose: 10 ml Sodium Chloride (Flush - Normal Saline) 10 ml IVF PRN PRN PRN Reason: Saline Flush Last Admin: 02/12/18 17:51 Dose: 10 ml Tramadol HCl (Ultram) 100 mg PO Q6H PRN PRN Reason: Moderate Pain (4-6) Tramadol HCl (Ultram) 50 mg PO Q6H PRN PRN Reason: Mild Pain (1-3) Zolpidem Tartrate (Ambien) 5 mg PO HSPRN PRN PRN Reason: Insomnia
[2018-02-12] MEDS: Pantoprazole 40 MG VIAL IVP SCH (21:13)
[2018-02-13] MEDS: Ketorolac Tromethamine 30 MG/ML VIAL IVP SCH ×3 (05:54→17:58)
[2018-02-13] MEDS: Lactated Ringer's 1,000 ML IV SCH ×2 (06:20→12:33)
[2018-02-13] MEDS: Sodium Chloride 0.9% 1,000 ML IV SCH ×2 (06:20→12:34)
--- NOTE | 2018-02-13 08:12 | PDOC.EVN ---
Event Note - Event Note Event Note: Has dysuria starting yesterday. Otherwise; feels much better. No nausea. Wants to go home. O: Tmax 102 at [place]..VSS ABD soft/ non tender. Incision clean/dry/intact A/P..Post op day 3. Fever with uti symptoms. Send urine c&s and start rocephin. Pathology is pending. GI in put /findings noted.
[2018-02-13] MEDS: Pantoprazole 40 MG VIAL IVP SCH (09:12)
[2018-02-13] MEDS: cefTRIAXone\\ROCEPHIN 1 GM in Sodium Chloride 0.9% 100 ML IVPB SCH (09:13)
[2018-02-13] MEDS: Famotidine 20 MG TAB PO SCH (09:13)
[2018-02-13] MEDS: Loperamide HCl 2 MG CAP PO SCH ×2 (09:13→20:46)
--- NOTE | 2018-02-13 14:12 | PDOC.PN ---
- Subjective Encounter Start Date: 02/13/18 Encounter Start Time: 11:40 Subjective: no nausea or diarrhea -: tolerating oral diet -: is ambulating in hallway - Objective Resuscitation Status: Resuscitation Status FULL:Full Resuscitation MAR Reviewed: Yes Vital Signs & Weight: Vital Signs (12 hours) Temp Pulse Resp BP Pulse Ox 02/13/18 11:45 98.3 F 75 20 100/57 L 02/13/18 07:47 99.7 F H 77 20 101/59 L 95 02/13/18 05:45 98.9 F 77 16 127/60 02/13/18 02:13 98.9 F Weight Weight 120 lb I&O: 02/12/18 02/13/18 02/14/18 06:59 06:59 06:59 Intake Total 1310 740 Output Total 2650 Balance -1340 740 Result Diagrams: 02/11/18 05:55 02/11/18 15:53 Phys Exam - Physical Examination HEENT: PERRLA, moist MMs Neck: no JVD, supple Respiratory: no wheezing, no rales Cardiovascular: RRR, no significant murmur Gastrointestinal: soft, no distention, positive bowel sounds Musculoskeletal: no edema, pulses present Neurological: non-focal, moves all 4 limbs Psychiatric: normal affect, A&O x 3 Dx/Plan (1) Gastritis and duodenitis Code(s): K29.90 - GASTRODUODENITIS, UNSPECIFIED, WITHOUT BLEEDING Status: Acute (2) Diarrhea Code(s): R19.7 - DIARRHEA, UNSPECIFIED Status: Resolved Comment: likely sec to bowel obstr from left ovarian cyst (3) Ovarian cyst Code(s): N83.209 - UNSPECIFIED OVARIAN CYST, UNSPECIFIED SIDE Status: Acute Qualifiers: Laterality: left Qualified Code(s): N83.202 - Unspecified ovarian cyst, left side Comment: s/p hysterectomy with b/l oophorectomy - Plan hemostable -: uti on ceftriaxone, await cs -: dc plan per Obgyn advice -: may dc iv fluids if she is taking in adequately -: oral protonix bid, dc pepcid * . Review of Systems - Medications/Allergies Allergies/Adverse Reactions: Allergies Allergy/AdvReac Type Severity Reaction Status Date / Time No Known Allergies Allergy Unverified 02/05/18 15:42 Medications: Current Medications Acetaminophen (Tylenol) 650 mg PO Q4H PRN PRN Reason: Headache/Fever or Mild Pain Last Admin: 02/12/18 23:58 Dose: 650 mg Hydrocodone Bitart/Acetaminophen ([place] 5/325) 1 tab PO Q4H PRN PRN Reason: Moderate Pain (4-6) Last Admin: 02/11/18 16:33 Dose: 1 tab Al Hydroxide/Mg Hydroxide (Maalox) 15 ml PO Q4H PRN PRN Reason: Heartburn or Indigestion Artificial Tears (Tears Naturale) 0 drop EA EYE PRN PRN PRN Reason: Dry Eyes Bisacodyl (Dulcolax) 10 mg [place] Q8H PRN PRN Reason: Constipation Diphenhydramine HCl (Benadryl) 25 mg PO Q4H PRN PRN Reason: Itching Famotidine (Pepcid) 20 mg PO BID [facility] Last Admin: 02/13/18 09:13 Dose: 20 mg Guaifenesin (Robitussin Sf) 200 mg PO Q4H PRN PRN Reason: Cough Hydralazine HCl (Apresoline) 10 mg SLOW IVP Q4H PRN PRN Reason: Systolic BP > 180 Ropivacaine 750 ml/ Device 750 mls @ 0 mls/hr NERVE BLCK INF [facility] Lactated Ringer's (Lactated Ringer's) 1,000 mls @ 125 mls/hr IV .Q8H [facility] Last Admin: 02/13/18 12:33 Dose: Not Given Sodium Chloride (Normal Saline 0.9%) 1,000 mls @ 125 mls/hr IV .Q8H [facility] Last Admin: 02/13/18 12:34 Dose: Not Given Ceftriaxone Sodium 1 gm/ (Sodium Chloride) 100 mls @ 200 mls/hr IVPB DAILY [facility] Last Admin: 02/13/18 09:13 Dose: 100 mls Ibuprofen (Motrin) 800 mg PO BID [facility] Ketorolac Tromethamine (Toradol) 30 mg IVP Q6HR [facility] Stop: 02/15/18 18:01 Last Admin: 02/13/18 13:25 Dose: 30 mg Loperamide HCl (Imodium) 2 mg PO PRN PRN PRN Reason: Diarrhea/Loose Stools Last Admin: 02/12/18 17:09 Dose: 2 mg Loperamide HCl (Imodium) 2 mg PO BID [facility] Last Admin: 02/13/18 09:13 Dose: 2 mg Loratadine (Claritin) 10 mg PO DAILYPRN PRN PRN Reason: Sinus Symptoms Magnesium Hydroxide (Milk Of Magnesium) 30 ml PO DAILYPRN PRN PRN Reason: Constipation Mineral Oil/White Petrolatum (Eucerin Cream) 0 gm TOP BIDPRN PRN PRN Reason: Dry Skin Morphine Sulfate (Morphine) 4 mg SLOW IVP Q4H PRN PRN Reason: Severe Pain (7-10) Last Admin: 02/10/18 16:45 Dose: 4 mg Ondansetron HCl (Zofran) 4 mg IVP Q6H PRN PRN Reason: Nausea/Vomiting Last Admin: 02/12/18 17:09 Dose: 4 mg Ondansetron HCl (Zofran Odt) 4 mg PO Q6H PRN PRN Reason: Nausea/Vomiting Pantoprazole Sodium (Protonix) 40 mg IVP Q12HR [facility] Last Admin: 02/13/18 09:12 Dose: 40 mg Promethazine HCl (Phenergan) 25 mg IM Q3H PRN PRN Reason: Nausea/Vomiting Sodium Chloride ([place] Nasal [place] 0.65%) 0 ml EA NARE QIDPRN PRN PRN Reason: Nasal Congestion Sodium Chloride (Flush - Normal Saline) 10 ml IVF Q12HR [facility] Last Admin: 02/13/18 09:13 Dose: 10 ml Sodium Chloride (Flush - Normal Saline) 10 ml IVF PRN PRN PRN Reason: Saline Flush Last Admin: 02/13/18 05:55 Dose: 10 ml Tramadol HCl (Ultram) 100 mg PO Q6H PRN PRN Reason: Moderate Pain (4-6) Tramadol HCl (Ultram) 50 mg PO Q6H PRN PRN Reason: Mild Pain (1-3) Zolpidem Tartrate (Ambien) 5 mg PO HSPRN PRN PRN Reason: Insomnia
--- NOTE | 2018-02-13 15:03 | PRG ---
DATE OF SERVICE: 02/13/2018 SUBJECTIVE: The patient is feeling much better. She is tolerating diet. She had no nausea or vomit ing. She had a bowel movement that was semi-formed. OBJECTIVE: VITAL SIGNS: Temperature is 98.3, pulse 75, respirations 20, blood pressure 100/57. CHEST: Clear. CARDIOVASCULAR: Regular rate and rhythm. ABDOMEN: Soft, tender, but less so than yesterday. Bowel sounds are present. LABORATORY DATA: Shows no new laboratory. Histopathology is pending. ASSESSMENT: 1. Persistent nausea and vomiting - resolved. 2. Chronic diarrhea - I suspect this is from the extrinsic compression from her pelvic mass. 3. Status post hysterectomy. RECOMMENDATIONS: 1. We will sign off. 2. We will contact the patient for outpatient colonoscopy in 4-6 weeks.
[2018-02-14] MEDS: Ketorolac Tromethamine 30 MG/ML VIAL IVP SCH ×2 (00:18→06:06)
[2018-02-14] MEDS: Lactated Ringer's 1,000 ML IV SCH ×2 (00:19→03:27)
[2018-02-14] MEDS: Sodium Chloride 0.9% 1,000 ML IV SCH ×2 (00:19→03:27)
--- NOTE | 2018-02-14 07:55 | PDOC.EVN ---
Event Note - Event Note Event Note: S: No nausea. Tolerating diet. Had more of a formed stool this morning. Good pain control. O:Afebrile.T max was 99.7 VSS Abdomen soft/non distended..incision clean and dry... Extremities non tender A/P: Post op day 4 -ANA CRISTINA/BSO--benign serous cystadenoma. GI:improved on Protonix 40 mg bid UTI/Fever-defervesced. Rocephin this AM. Begin 5 days of cipro 500 mg bid in AM. Out patient colonoscopy in 4-6 weeks Pathology of stomach and duodenum-reactic gastropathy. Negative helicobacter pylory. Acute duodenitis.
[2018-02-14 08:06] VITALS: BP 144/71; TEMP 98
[2018-02-14] MEDS: cefTRIAXone\\ROCEPHIN 1 GM in Sodium Chloride 0.9% 100 ML IVPB SCH (08:34)
[2018-02-14] MEDS: Loperamide HCl 2 MG CAP PO SCH (08:35)
--- NOTE | 2018-02-15 01:43 | DIS ---
DATE OF ADMISSION: 02/09/2018 DATE OF DISCHARGE: 02/14/2018 DIAGNOSES: 1. Adnexal mass with benign serous cystadenoma of the left ovary. 2. Pelvic pain. 3. Chronic diarrhea. 4. Nausea and vomiting. 5. Dehydration. 6. Hypokalemia. 7. Urinary tract infection. PROCEDURES PERFORMED IN THIS HOSPITALIZATION: 1. Total abdominal hysterectomy and bilateral salpingo-oophorectomy. 2. EGD. CONSULTATION SERVICES: 1. Internal Medicine Hospitalist. 2. Gastroenterology. SUMMARY OF HOSPITAL COURSE: Ms. Hubbard is a 52-year-old white female, who had had increasing abdominal and pelvic pain for approximately a month. She had presented to the emergency room at that time and had a CAT scan of the abdomen and pelvis that was noted for approximately 8 to 9 cm mostly cystic le ft adnexal mass. She had a normal CA 125 at 21 and she was scheduled for total abdominal hysterectom y and bilateral salpingo-oophorectomy on 02/09/2018. Her preoperative labs at that admission showed her to be significantly hypokalemic with a value of 2.6 and therefore, she underwent IV fluid rehydra tion along with IV potassium repletion with assistance from the [facility]ist [facility] milka Coburn. The next morning, she had a potassium of 4 with normalization of her electrolytes and therefore, she underwent her total abdominal hysterectomy and BSO on 02/10/2018. 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 Postoperatively, she did continue to have the nausea, vomiting, and some diarrhea and therefore, [place] [facility] was consulted with Dr. Topete. The patient had been started on loperamide 2 mg twice a da y scheduled for the diarrhea. She did receive repletion of some more IV potassium, and nausea was ma naged with Zofran. She did improve clinically, but did continued with the diarrhea and nausea. Ther efore, she underwent an EGD by Dr. Topete on 02/12/2018. Pathology showed some reactive gastropathy wi th negative Helicobacter pylori findings and also mild duodenitis with no evidence of any dysplasia o r malignancy. Final pathology of the adnexal mass showed it to be a benign serous cystadenoma and cy tology was negative. She continued to improve and was tolerating diet and was actually having more formed stools. It was felt colonoscopy will be held for approximately 4-6 weeks after her recovery from her hysterectomy. She did spike a fever to 102 the night of postop day #3, and did have some urinary tract symptoms and urine C&S was sent. She was started empirically on Rocephin 1 gram with resolution of her fever wit hin 24 hours. She received an additional 1 gram of Rocephin at the time of discharge on 02/14/2018, and will be giv en Cipro 500 mg b.i.d. for another 5 days. Her stool studies including Campylobacter, Shiga toxin ti ter, stool cultures, and ova and parasite cultures along with Clostridium difficile antigen and toxin were all negative. She will have a followup postop day #7 for staple removal and in 6 weeks postop from the hysterectomy procedure, and she will follow up with Dr. Topete in 4-6 weeks for outpatient colonoscopy. She is als o to continue Protonix 40 mg b.i.d. for her gastritis and duodenitis. Tramadol 50 mg q.6 hours p.r.n . pain was also given to the patient and she is to use [id number] ibuprofen as needed sparingly .
[2018-02-16] MEDS ORDERED: Ibuprofen 800 MG TAB PO SCH (09:00)
== END 2018-02-14 09:40 | disposition home or self-care (01) | DRG 742 ==
LOC: SURG A 02-09 10:16 → 3SE 02-09 14:19
PROVIDERS: ADMIT Obstetrics & Gynecology; ATTEND Obstetrics & Gynecology
PROC: 0UT90ZZ Resection of Uterus, Open Approach (ICD-10-PCS; principal; 2018-02-10)
PROC: 0UT70ZZ Resection of Bilateral Fallopian Tubes, Open Approach (ICD-10-PCS; 2018-02-10)
PROC: 0UT20ZZ Resection of Bilateral Ovaries, Open Approach (ICD-10-PCS; 2018-02-10)
PROC: 0DB98ZX Excision of Duodenum, Via Natural or Artificial Opening Endoscopic, Diagnostic (ICD-10-PCS; 2018-02-12)
PROC: 0DB68ZX Excision of Stomach, Via Natural or Artificial Opening Endoscopic, Diagnostic (ICD-10-PCS; 2018-02-12)
DX: D27.1 Benign neoplasm of left ovary (principal); E87.1 Hypo-osmolality and hyponatremia; N39.0 Urinary tract infection, site not specified; Q51.10 Doubling of uterus with doubling of cervix and vagina without obstruction; K52.9 Noninfective gastroenteritis and colitis, unspecified; E87.6 Hypokalemia; E86.0 Dehydration; K29.80 Duodenitis without bleeding; K29.70 Gastritis, unspecified, without bleeding; R10.2 Pelvic and perineal pain; R63.4 Abnormal weight loss; Z68.20 Body mass index [BMI] 20.0-20.9, adult
CPT/HCPCS: 36415; 80048; 83735; 84100; 84132; 85007; 85027; 85060; 86850; 86900; 86901; 87045; 87046; 87086; 87324; 87328; 87329; 87449; 87899; 88112; 88305; 88307; 88312; A4216; C9113; J0696; J1170; J1885; J2001; J2270; J2405; J2550; J2704; J2795; J3010; J3480; J7050; S0020; S0028

== ENCOUNTER 2018-02-05 15:27 | Outpatient (CLI) | payer OTHER | END 2018-02-05 15:28 | disposition home or self-care (01) | LOC: LABBT 15:27 | PROVIDERS: ATTEND Obstetrics & Gynecology | DX: Z01.812 Encounter for preprocedural laboratory examination (principal); R10.2 Pelvic and perineal pain; N83.9 Noninflammatory disorder of ovary, fallopian tube and broad ligament, unspecified | CPT/HCPCS: 80048; 85027; 86850; 86900; 86901 ==

== ENCOUNTER 2024-06-25 13:56 | Outpatient (CLI) | payer BC ==
[2024-06-25] MEDS ORDERED: Iopamidol 370 76% 100 ML VIAL ONE (14:55)
== END 2024-06-25 13:57 | disposition home or self-care (01) ==
LOC: BICCT 13:56
PROVIDERS: ATTEND Internal Medicine Hematology & Oncology
DX: C50.811 Malignant neoplasm of overlapping sites of right female breast (principal); R59.0 Localized enlarged lymph nodes
CPT/HCPCS: 36415; 72193; 82565; Q9967